=== PATIENT | female | born 1945 | race Caucasian/White ===

== ENCOUNTER 2017-07-22 20:24 | Emergency (ER) | payer BC, OTHER ==
[~2017-07-22] VITALS: Ht 167.6 cm; Wt 118.2 kg
[~2017-07-22 20:24] MED LIST: ATOR40TA28 PO; CHOL10002 PO; DONE5TAB PO
[2017-07-22] MEDS ORDERED: CARV3 PO (20:37)
[2017-07-22] MEDS ORDERED: IBUPROFEN 800 MG TABLET PO ONE (21:30)
[2017-07-22 22:03] VITALS: BP 132/68
== END 2017-07-22 22:08 | disposition home or self-care (01) ==
LOC: EMS 20:30
DX: S83.92XA Sprain of unspecified site of left knee, initial encounter (principal); X58.XXXA Exposure to other specified factors, initial encounter; Y93.89 Activity, other specified; Y92.89 Other specified places as the place of occurrence of the external cause; Y99.8 Other external cause status
CPT/HCPCS: 99282